=== PATIENT | female | born 1990 | race Caucasian/White ===

== ENCOUNTER 2022-01-25 08:15 | Outpatient (CLI) | payer OTHER, SELFPAY | END 2022-01-25 08:16 | disposition home or self-care (01) | PROVIDERS: PCP Family Medicine; Visit Provider Registered Nurse | DX: J02.9 Acute pharyngitis, unspecified (principal) | CPT/HCPCS: 87880 ==

== ENCOUNTER 2022-09-08 00:28 | Day surgery (SDC) | payer OTHER, SELFPAY ==
[2022-08-29 13:11] VITALS: BMI 32.1
--- NOTE | 2022-08-29 13:40 | SUR.PREOP ---
Report to the Outpatient Waiting Room, entrance under the green pavilion located off [facility], at time 1230 on date 09/08/2022. Planned Procedure Time: 1430. Time changes happen often and if your time is changed the preop area will call you the afternoon before. - You and your visitor will be asked to self-screen and do not enter if you have any COVID symptoms. - Only one visitor is requested with a max of two and NO children visitors are allowed at this time. - The patient visitor may be requested to leave or wait in car when not with patient due to distancing restrictions. - A mask is optional within the hospital at this time. Patients may have clear liquids (water, carbonated beverages, clear teas, apple juice) until 3 hours prior to surgery with a maximum of 20 ounces- 1130. - No food from midnight until time of surgery - Infants may have breast milk until 4 hours before surgery, infant formula 6 hours prior to surgery. - Children will be allowed to drink immediately following surgery. If applicable, please bring a bottle or sippy cup to assist with drinking. Juice, water, soda, and popsicles are readily available. For infants on formula, please bring formula the day of surgery. Pacifiers are allowed. Take the following medications with a SIP of water the morning of surgery: N/A DO NOT STOP ANY OF YOUR OTHER PRESCRIPTION MEDICATIONS PRIOR TO SURGERY ?EXCEPT THE FOLLOWING Medications to discontinue per physician N/A Date to take last dose N/A Please no make-up, nail mohawk, hairspray, perfume, deodorant, or body powder the day of surgery. No jewelry (including any body piercings) or valuables the day of surgery, leave them at home. Please take a shower or bath the night before, or the morning of, surgery with an antibacterial soap. Wear comfortable, loose fitting clothing. Children are encouraged to wear pajamas. - Jewelry must be removed prior to entering the operating room. Rings and piercings that are not removed may be cut off. - The hospital will not accept responsibility for valuables. - Please leave all valuables, including medications, at home the day of surgery. If you are going home after surgery, a licensed bulk driver must drive you home. - NO public transportation without another adult if you receive anesthesia. - We recommend that an adult stay with you for 24 hours following discharge. - We also recommend that you do not drive, make important decision, drink alcoholic beverages, or take any drugs that were not prescribed by your health care provider for at least 24 hours after your discharge time. For Pediatric surgeries, we recommend two adults accompany the child home. Follow any additional instructions given to you from your surgeon. If you or anyone in your household have experienced Covid symptoms in the past week, please notify your surgeon or the nurse liaison at the phone number below for possible testing. Telephone instructions given to ____patient and asked if any additional questions and then verbalized understanding. Patient advised to call surgeon office or pre surgery nurse liaison [phone] if any additional questions.
--- NOTE | 2022-09-06 07:51 | P.HP_ITS ---
H&P: HPI History of Present Illness Date/Time: 09/06/22 07:51 Chief Complaint: Desires sterilization Narrative: This is the 32-year-old 3 para 3 admitted for laparoscopic tubal ligations secondary to desire for permanent sterilization she understands this to be a permanent irreversible procedure with a failure rate of 09/999. Alternatives including exclusive pills, patches injections, long-acting cont raception etc. were all reviewed. She signed the [facility] tubal ligation formed. She had all questions answered and asked to proceed [facility] Social History Social History Smoking packs per day: 0.5 Smoking cigarettes per day: 10.0 Years smoked: 4 Smoking pack-years: 2.00 Smoking status: Former smoker Tobacco type: cigarettes Alcohol intake: current Alcohol use details: Once a month Substance use: current Substance use type: marijuana Other substance usage details: marijuana twice per month Living arrangements: with family Spiritual care concerns: No Meds Home Medications and Allergies Home Medications Medication Instructions Recorded Confirmed Type norethindrone 1 mg-ethinyl 1 tablet PO DAILY 08/29/22 08/29/22 History estradiol 20 mcg (21)-iron 75 mg (7) tablet ([place] Fe 1-20 EQ (28)) Allergies Allergy/AdvReac Type Severity Reaction Status Date / Time No Known Allergies Allergy Verified 08/29/22 13:12 Exam Const: General: cooperative, healthy appearing, comfortable and average body habitus Orientation/consciousness: oriented to person, oriented to place and oriented to time HENMT: Head: normal to inspection Resp: Effort & Inspection: normal respiratory effort Cardio: Rate: regular rate Rhythm: regular rhythm Heart sounds: S1 normal heart sound present and S2 normal heart sound present GI: Inspection: normal to inspection Percussion: Yes normal to percussion Auscultation: normal bowel sounds : Speculum Exam - Vagina: normal appearance of the vagina Speculum Exam - Cervix: normal appearance of the cervix Bimanual exam- vagina & uterus: uterine shape normal and non-tender Bimanual Exam- Adnexa, other: normal adnexae Assessment and Plan Assessment and plan (1) Sterilization: Code(s): Z30.2 - Encounter for sterilization Status: Acute Plan Laparoscopic bilateral tubal ligation
[2022-09-08] VITALS (8 sets, daily range): BP systolic 95–126; BP diastolic 41–66; PULSE 54–103; RESP 12–18; TEMP 36.3–36.8; O2SAT 96–99
--- NOTE | 2022-09-08 07:08 | WPDHPUPDATE1 ---
History and Physical Update Update Date/Time: 09/08/22 07:08 History and Physical has been reviewed, including an updated exam of the patient. There are NO changes in the patient's condition. Risks, benefits, and alternatives have been discussed and questions answered. Patient agrees to proceed with procedure.
[2022-09-08] MEDS: ACETAMINOPHEN 500 MG TABLET 1000 MG PO (13:10)
[2022-09-08] MEDS: LACTATED RINGERS 1,000 ML 30 ML IV CONT (13:10)
[2022-09-08] MEDS: KETOROLAC 15 MG/ML VIAL (*BKC) IV PUSH (13:10)
--- NOTE | 2022-09-08 13:46 | WPDANESEPPF ---
Anes - Initial Pre Proc Eval Procedure: Operation Date: 09/08/22 14:30 Proposed Procedures p Laparoscopic Bilateral Tubal Sterilization - Faustino Gonzalez MD Date/Time: 09/08/22 13:46 Surgeon: Faustino Gonzalez MD Pre Op Diagnosis: Desire Sterilization Patient Data Age: 32 Gender: F Height: 1.7 m Weight: 91.75 kg Last Vital Signs Temp 36.8 C 09/08/22 13:10 Pulse 82 09/08/22 13:10 Resp 16 09/08/22 13:10 BP 126/66 09/08/22 13:10 Pulse Ox 99 09/08/22 13:10 O2 Del Method Room Air 09/08/22 13:10 Allergies Allergy/AdvReac Type Severity Reaction Status Date / Time No Known Allergies Allergy Verified 08/29/22 13:12 Home Medications Medication Instructions Recorded Confirmed Type norethindrone 1 mg-ethinyl 1 tablet PO DAILY 08/29/22 08/29/22 History estradiol 20 mcg (21)-iron 75 mg (7) tablet ([place] Fe 1-20 EQ (28)) hydrocodone 5 mg-acetaminophen 325 1 tablet PO Q4H PRN pain #20 tabs 09/08/22 Rx mg tablet Patient hx anesthesia problems: none Family hx anesthesia problems: post op nausea/vomiting Results Review: All pre-operative results and documents have been reviewed as part of the pre-operative evaluation. [facility] Social History Social History Smoking packs per day: 0.5 Smoking cigarettes per day: 10.0 Years smoked: 4 Smoking pack-years: 2.00 Smoking status: Former smoker Tobacco type: cigarettes Alcohol intake: current Alcohol use details: Once a month Substance use: current Substance use type: marijuana Other substance usage details: marijuana twice per month Living arrangements: with family Spiritual care concerns: No Anes - Eval Final PreProcedure Day of Procedure 09/08/22 13:46 Patient weight: obese Heart: regular rate and rhythm Lungs: clear to auscultation Airway: Mallampati scale class II Neurological: alert and oriented Last oral intake: >/= 8 hours ASA classification: II Emergent: no Anesthetic plan: proceed Anesthesia type and monitoring: general ETT and standard monitoring Results Review: All pre-operative results and documents have been reviewed as part of the pre-operative evaluation. Informed Consent: The patient's anesthetic plan and its attendant risks and benefits were discussed with the patient/family/POA. Questions were solicited and answers provided to the satisfaction of the patient/family/POA.
[2022-09-08] MEDS: SCOPOLAMINE 1.5 MG PATCH TRANSDERM (14:01)
--- NOTE | 2022-09-08 14:26 | W.PM.PROC2 ---
Procedure Note - Detailed Date of Procedure 09/08/22 Pre-op Diagnosis Desire Sterilization Post-op Diagnosis Same Procedure Performed Laparoscopic bilateral tubal ligation via silastic rings Surgeon Faustino Gonzalez MD Anesthesia General Indications so 32-year-old female desires permanent irreversible cysts sterilization Findings normal-appearing uterus ovaries and tubes. Small benign ovarian cyst was seen on the left was restrained of serous fluid. Description of Procedure Patient was prepped draped in normal sterile fashion placed in the dorsal lithotomy position. Under excellent general trach anesthesia weighted speculum placed in posterior fornix vagina. Anterior lip of the cervix grasped with a single-tooth tenaculum. The Butcher's cannula inserted the cervix and attached to the single-tooth. This would be used later for uterine manipulation. A weighted speculum was removed and the bladder drained of clear urine. The gloves were changed. An infraumbilical incision made. The Veress needle passed in the abdomen. Abdomen filled with CO2 gas to 15mm Hg. The 5mm trocar advanced with the Optiview and no injury seen. Gas reattached patient placed in Trendelenburg. A suprapubic incision made the 8mm trocar advanced under direct visualization assuring no injury. Photo documentation normal-appearing pelvis was present there was a small ovarian cyst in this was drained of cleared follicular fluid. The left fallopian tube was grasped in a good knuckle of tube formed in the midportion. A good knuckle of tube was formed with the silastic band on the right and photo documentation undertaken. No other abnormalities were seen. Lower site removed. The gas removed from the abdomen. The upper site removed. Incisions closed with 4 Monocryl and glue. The instruments removed from the vagina and the patient was awakened. All sponge, needle, instrument counts were correct. There were no immediate complications Estimated Blood Loss 5 Drains No Packing No Pathology None sent Complications No immediate complications Condition Stable Disposition PACU
[2022-09-08] MEDS: fentaNYL CITRATE INJ (*CRX) 100 MCG/2 ML VIAL 25 MCG IV PUSH ×4 (14:48→14:58)
[2022-09-08] MEDS: ONDANSETRON INJ 4 MG/2 ML VIAL IV PUSH (15:18)
[2022-09-08] MEDS: oxyCODONE HCL (*CRX) 5 MG TAB IR PO (15:45)
[2022-09-08] MEDS: diphenhydrAMINE HCl INJ 50 MG/ML VIAL 12.5 MG IV PUSH (16:13)
== END 2022-09-08 16:32 | disposition home or self-care (01) ==
PROVIDERS: Visit Provider Obstetrics & Gynecology
PROC: (CPT 58671; principal; 2022-09-08 14:30)
DX: Z30.2 Encounter for sterilization (principal); N83.202 Unspecified ovarian cyst, left side; Z87.891 Personal history of nicotine dependence; E66.9 Obesity, unspecified; Z68.31 Body mass index [BMI] 31.0-31.9, adult
CPT/HCPCS: 58671; 58662; A4264; A9270; J1100; J1200; J1885; J2250; J2405; J2704; J3010; J7120

== ENCOUNTER 2025-02-27 07:52 | Emergency (ER) | payer OTHER, SELFPAY ==
--- NOTE | 2025-02-27 07:55 | ED_ITS ---
HPI - General Adult General Stated complaint: flu Time Seen by Provider: 02/27/25 07:55 Source: patient Mode of arrival: ambulatory Limitations: no limitations History of Present Illness HPI narrative: 34 years old white female came from home by private car complaining of nausea and frequent vomiting all night long. Slight postnasal discharge, denies any fever, chills, abdominal pain, back pain. Patient denies sick contact. Related Data Home Medications ?Medication ?Instructions ?Recorded ?Confirmed ?Last Taken ?Type norethindrone 1 mg-ethinyl 1 tablet PO DAILY 08/29/22 08/29/22 08/28/22 14:00 History estradiol 20 mcg (21)-iron 75 mg (7) tablet ([place] Fe 1-20 EQ (28)) Allergies Allergy/AdvReac Type Severity Reaction Status Date / Time No Known Allergies Allergy Verified 08/29/22 13:12 Review of Systems 2 Review of Systems: All systems reviewed & are unremarkable except as noted in HPI and below PMFSH Social History Social History Smoking packs per day: 0.5 Smoking cigarettes per day: 10.0 Years smoked: 4 Smoking pack-years: 2.00 Smoking status: Former smoker Tobacco type: cigarettes Alcohol intake: current Alcohol use details: Once a month Substance use: current Substance use type: marijuana Other substance usage details: marijuana twice per month Living arrangements: with family Spiritual care concerns: No Exam 2 Narrative: General appearance: Well-developed, well-nourished Skin: Normal color Head: Normocephalic, nontraumatic Eyes: Clear conjunctiva ENT: Oropharynx normal, ears normal, nose normal Neck: Supple, nontender Chest and respiratory: Airway patent, no respiratory distress, no accessory muscle use Heart: Regular rate/rhythm Abdomen: Soft, nontender, no organomegaly, quiet bowel sounds Vascular: Normal peripheral pulses, normal capillary refill. Musculoskeletal: Normal range of motion, nontender back Neurologic: Alert and oriented ?3, PLUSH DRESSER is normal as tested, no gross motor deficit Course Vital Signs Vital signs: Vital Signs Temperature 36.4 C L 02/27/25 07:56 Pulse Rate 74 02/27/25 07:56 Respiratory Rate 18 02/27/25 07:56 Blood Pressure 123/77 02/27/25 07:56 Pulse Oximetry 100 02/27/25 07:56 Oxygen Delivery Room Air 02/27/25 07:56 Temperature 36.4 C L 02/27/25 07:56 Pulse Rate 74 02/27/25 07:56 Respiratory Rate 18 02/27/25 07:56 Blood Pressure 123/77 02/27/25 07:56 Pulse Oximetry 100 02/27/25 07:56 Oxygen Delivery Room Air 02/27/25 07:56 Medical Decision Making MDM Narrative Medical decision making narrative: Patient presents with nausea vomiting Vital signs are stable Physical examination insignificant Differential diagnosis include viral gastroenteritis upper respiratory viral infection Blood workup today includes CBC, CMP showed no significant abnormality Urinalysis showed no significant abnormality Patient tested negative for COVID flu and RSV. Diagnosis gastroenteritis Discharged on Zofran The pt was discharged to home.the pt,s condition upon discharge was fair,education was provided to the pt in reference to the final impression,discharge study results,treatment,prognosis and need for follow up . Vital Signs Vital Signs: Vital Signs Temperature 36.4 C L 02/27/25 07:56 Pulse Rate 74 02/27/25 07:56 Respiratory Rate 18 02/27/25 07:56 Blood Pressure 123/77 02/27/25 07:56 Pulse Oximetry 100 02/27/25 07:56 Oxygen Delivery Room Air 02/27/25 07:56 Temperature 36.4 C L 02/27/25 07:56 Pulse Rate 74 02/27/25 07:56 Respiratory Rate 18 02/27/25 07:56 Blood Pressure 123/77 02/27/25 07:56 Pulse Oximetry 100 02/27/25 07:56 Oxygen Delivery Room Air 02/27/25 07:56 Lab Data 02/27/25 08:03 02/27/25 08:03 Labs: Lab Results 02/27/25 02/27/25 Range/Units 08:03 08:08 WBC 10.1 (4.8-10.8) K/mm3 RBC 4.17 L (4.20-5.40) M/mm3 Hgb 12.1 (12.0-15.0) g/dL Hct 36.4 (35.0-49.0) % MCV 87.3 (78.0-102.0) fL MCH 29.0 (27.0-31.0) pg MCHC 33.2 (32-36) g/dL RDW 13.3 (11.6-14.4) % Plt Count 362 (150-420) K/mm3 MPV 8.5 L (9.2-11.8) fl Immature Gran % (Auto) 0.5 H (0.0-0.0) % Neut % (Auto) 82.8 H (50.0-70.0) % Lymph % (Auto) 11.6 L (18.0-42.0) % [place] % (Auto) 4.4 (2.0-11.0) % Eos % (Auto) 0.2 L (1.0-6.0) % Baso % (Auto) 0.5 (0.0-1.0) % Lymph # (Auto) 1.17 (1.10-4.50) K/mm3 [place] # (Auto) 0.44 (0.10-0.90) K/mm3 Eos # (Auto) 0.02 (0.02-0.50) K/mm3 Baso # (Auto) 0.05 (0.00-0.10) K/mm3 Abs Immat Gran (auto) 0.05 H (0.00-0.00) K/mm3 Absolute Neuts (auto) 8.38 H (1.70-7.20) K/mm3 Absolute Nucleated RBC 0.00 (0.00-0.00) K/mm3 Nucleated RBC % 0.0 (0-0.0) % Sodium 140 (137-145) mmol/L Potassium 3.5 (3.4-5.0) mmol/L Chloride 107 (98-107) mmol/L Carbon Dioxide 22 (22-30) mmol/L Anion Gap 11 (4-12) mmol/L BUN 5 L (7-17) mg/dL Creatinine 0.59 L (0.7-1.0) mg/dL Estim Creat Clear Calc 134 ml/min Estimated GFR > 60 (59 - ) Glucose 118 H (65-110) mg/dL Calculated Osmolality 288 (285-295) mOsm/kg Calcium 9.6 (8.4-10.2) mg/dL Total Bilirubin 0.6 (0.2-1.3) mg/dL AST 34 (14-36) U/L ALT 39 H (6-35) U/L Alkaline Phosphatase 81 (38-126) U/L Total Protein 8.1 (6.3-8.2) g/dL Albumin 4.6 (3.5-5.1) g/dL Urine Color Light yellow (Yellow) Urine Appearance Clear (Clear) Urine pH 8.0 (5.0-8.0) Ur Specific [place] 1.010 (1.010-1.020) Urine Protein Negative (Negative) Urine Glucose (UA) Negative (Negative) Urine Ketones Negative (Negative) Ur Blood (Man) Negative (Negative) Urine Nitrate Negative (Negative) Urine Bilirubin Negative (Negative) Urine Urobilinogen 0.2 (0.2-1.0) mg/dL Leukocyte Esterase Rfl Negative (Negative) SRAVANI/UL Influenza A (RT-PCR) Negative (Negative) Influenza B (RT-PCR) Negative (Negative) RSV (RT-PCR) Negative (Negative) SARS-CoV-2 RNA (RT-PCR) Negative (Negative) Critical Care Time Critical Care Time Critical Care Time: No Discharge Plan Discharge Clinical Impression: Gastroenteritis Patient Disposition: Home Condition: Improved Instructions: Acute Nausea and Vomiting (DC) Patient Language: [place] Prescriptions: New ondansetron 4 mg tablet,disintegrating 4 mg PO Q4H 0 Days Qty: 10 0RF Rx Instructions: 1st dose 1-2 hr before radiation No Action norethindrone-e.estradiol-iron [[place] Fe 1-20 EQ (28)] 1 mg-20 mcg (21)/75 mg (7) tablet 1 tablet PO DAILY Patient Comments: PATIENT TAKES DAILY AT 1400 hydrocodone-acetaminophen 5-325 mg tablet 1 tablet PO Q4H PRN (Reason: pain) Qty: 20 0RF Follow-up/Referrals: Jacquelin,MD Zachary [Primary Care Provider, Family Practice]
[2025-02-27 07:56] VITALS: BP 123/77; PULSE 74; RESP 18; TEMP 36.4; O2SAT 100
[2025-02-27 08:09] LABS: Hematocrit 36.4 % (35.0-49.0); Hemoglobin 12.1 g/dL (12.0-15.0); Immature Granulocyte Percent A 0.5 % (0.0-0.0); Lymphocytes Absolute Auto 1.17 K/mm3 (1.10-4.50); Mean Corpuscular HGB Conc 33.2 g/dL (32-36); Mean Corpuscular Hemoglobin 29.0 pg (27.0-31.0); Mean Corpuscular Volume 87.3 fL (78.0-102.0); Nucleated Red Blood Cells Absolute Auto 0.00 K/mm3 (0.00-0.00); Nucleated Red Blood Cells Perc 0.0 % (0-0.0); Platelet Count Result 362 K/mm3 (150-420); Red Blood Count 4.17 M/mm3 (4.20-5.40); White Blood Count 10.1 K/mm3 (4.8-10.8)
[2025-02-27] MEDS: SODIUM CHLORIDE 0.9% IV 1,000 ML 999 ML IV CONT (08:18)
[2025-02-27] MEDS: ONDANSETRON INJ 4 MG/2 ML VIAL 8 MG IV PUSH (08:19)
[2025-02-27 08:21] LABS: Alanine Aminotransferase 39 U/L (6-35); Albumin Level 4.6 g/dL (3.5-5.1); Alkaline Phosphatase 81 U/L (38-126); Anion Gap 11 mmol/L (4-12); Aspartate Amino Transferase 34 U/L (14-36); Bilirubin,Total 0.6 mg/dL (0.2-1.3); Blood Urea Nitrogen 5 mg/dL (7-17); Calcium 9.6 mg/dL (8.4-10.2); Carbon Dioxide 22 mmol/L (22-30); Chloride 107 mmol/L (98-107); Estimated CRCL calculation 134 ml/min; Estimated Glomerular Filt Rate > 60; Glucose 118 mg/dL (65-110); Osmolality Calculated 288 mOsm/kg (285-295); Potassium 3.5 mmol/L (3.4-5.0); Sodium 140 mmol/L (137-145); Total Protein 8.1 g/dL (6.3-8.2)
[2025-02-27 08:23] LABS: Add Urine Microscopic? NO; Appearance Urine Clear (Clear); Glucose Urine UA Negative (Negative); Leukocyte Esterase Ur Negative LEU/UL (Negative); Nitrate Urine Negative (Negative); Specific Grav Ur 1.010 (1.010-1.020)
[2025-02-27 08:30] VITALS: BP 114/72; PULSE 66; RESP 17; O2SAT 99
[2025-02-27 08:44] LABS: Influenza A QL RT-PCR Negative (Negative); Influenza B QL RT-PCR Negative (Negative); RSV RNA, RT-PCR Negative (Negative); SARS-CoV-2 RNA PCR Negative (Negative)
[2025-02-27 09:00] VITALS: BP 115/72; PULSE 63; RESP 17; O2SAT 99
[2025-02-27 09:34] VITALS: BP 114/81; PULSE 64; RESP 17; O2SAT 99
== END 2025-02-27 09:34 | disposition home or self-care (01) ==
PROVIDERS: Emergency Provider Emergency Medicine; PCP Family Medicine
DX: K52.9 Noninfective gastroenteritis and colitis, unspecified (principal); Z87.891 Personal history of nicotine dependence; Z20.822 Contact with and (suspected) exposure to COVID-19
CPT/HCPCS: 36415; 80053; 81003; 85025; 87637; 96360; 96361; 96374; 99284; J2405; J7030